=== PATIENT | female | born 1995 | race Caucasian/White ===

== ENCOUNTER 2023-11-22 08:47 | Outpatient (AMB) | payer OTHER, SELFPAY ==
--- NOTE | 2023-11-22 09:23 | MHC.OFFWIV ---
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 She states that she had persistent asthma as a child, for which she utilized albuterol and nebulizer at home. For many years, asthma has been well controlled, and she has not needed any medication for this. About 3 weeks ago however, she developed an upper respiratory infection, and although most of the symptoms have resolved aside from some postnasal drip, she has had persistent coughing and shortness of breath / wheezing. She denies any fever or chills. She does not have any asthma medication at home to utilize. She does not have a PCP, however has a new patient visit scheduled for May at [place]. [facility] Social History Patient Tobacco Use Status: Never used Tobacco Review of Systems Const All systems reviewed & are unremarkable except as noted in HPI and below Physical Exam Vital Signs: Last Vital Signs Temp 99.2 F 11/22/23 09:27 Pulse 107 H 11/22/23 09:27 BP 146/80 H 11/22/23 09:27 Pulse Ox 98 11/22/23 09:27 Oxygen Delivery Method Room Air 11/22/23 09:27 BMI result Body Mass Index 52.5 Const General: cooperative and no acute distress Nutritional Appearance: obese morbidly obese HEENT Other: Hirsutism Head: Yes normal to inspection Ears: hearing grossly normal bilaterally General nose exam: Normal external nose present and Normal nasal mucous membranes and turbinates present Throat: Yes posterior oropharynx normal Resp Effort & Inspection: normal respiratory effort, able to speak in complete sentences and Actively coughing Quality: dry Auscultation: clear to auscultation bilaterally and wheezes upper bilaterally Cardio Jugular venous distension: no JVD Palpation: normal PMI Rate: regular rate Rhythm: regular rhythm Skin General skin exam: no rashes or lesions noted Extrem General: Yes capillary refill normal and Yes no clubbing, cyanosis or edema Psych Appearance: grossly normal Mental Status: mental status grossly normal Speech and movement: Normal speech and movement present Office Procedures Nebulizer Treatment Nebulizer Treatment [id number] RX initial, or Nebulizer Subsequent Treatment Office Meds ipratropium 0.5 mg-albuterol 3 mg (2.5 mg base)/3 mL nebulization soln Performing Provider: SHERI Cook Performing Location: [facility] ([facility] Administered by: Annamarie Blankenship RN on 11/22/23 09:52 Dose Route Admin Location Dispensed Lot Number Expiration Date [employer] 3 mL inhalation 3 mL [id number] 08/14/24 9570-6808-97 [facility] Assessment & Plan Assessment & Plan (1) Asthma exacerbation: Code(s): J45.901 - Unspecified asthma with (acute) exacerbation Qualifiers: Asthma severity: unspecified severity Asthma persistence: unspecified Qualified Code(s): J45.901 - Unspecified asthma with (acute) exacerbation Plan: Nebulizer treatment (duoneb) provided in the office today with good effect. Scattered upper lobe wheezing was resolved upon reassessment following treatment. Patient reports significant improvement. At this time, patient does not have any rescue inhaler for use at home. Will prescribe albuterol for her, and will also start her on a short course of p.o. prednisone for this exacerbation. I encouraged her to contact PCP office to see if she can get in for a new patient visit any sooner than her currently schedule visit which is not for many months. If she does not improve with treatment, or if symptoms worsen, she can return to the clinic or go to the emergency department for further evaluation. She verbalizes understanding and agrees to plan. Orders: Orders AMB Nebulizer Treatment Today J45.901 - Unspecified asthma with (acute) exacerbation Medications: New albuterol sulfate 90 mcg/actuation 1 inh inhalation QID PRN 6.7 grams 1RF shortness of breath or wheezing J45.901 - Unspecified asthma with (acute) exacerbation prednisone 20 mg PO BID 3 days 6 tabs 0RF J45.901 - Unspecified asthma with (acute) exacerbation Coding Level of Care Code Est Pt Level 3 (54523) Diagnoses Exacerbation of asthma, unspecified asthma severity, unspecified whether persistent J45.901 Asthma severity: unspecified severity Asthma persistence: unspecified CPT Codes Nebulizer Treatment - Nebulizer Treatment, initial or subsequent: [id number] RX initial, or Nebulizer Subsequent Treatment ([id number])
[2023-11-22 09:27] VITALS: BP 146/80; PULSE 107; TEMP 37.3; O2SAT 98; BMI 52.5
== END 2023-11-22 10:09 | disposition home or self-care (01) ==
PROVIDERS: PCP Pediatrics; Visit Provider Nurse Practitioner Family
DX: J45.901 Unspecified asthma with (acute) exacerbation (principal)
CPT/HCPCS: 94640; 99213; J7620

== ENCOUNTER 2023-11-27 13:10 | Emergency (ER) | payer OTHER, SELFPAY ==
--- NOTE | ~2023-11-27 | CT_ITS ---
EXAMINATION: CT HEAD WITHOUT CONTRAST CLINICAL INFORMATION: Left arm numbness. COMPARISON: None. TECHNIQUE: Contiguous axial imaging was performed from the skull base to vertex without intravenous administration of contrast. This CT examination was performed using dose optimization techniques as appropriate, variously including the following: *Automated exposure control *Adjustment of mA and/or kV according to patient size (this includes techniques or standardized protocols for targeted exams where dose is matched to indication/reason for exam; i.e. extremities or head) *Use of iterative reconstruction technique DLP: 612 mGy-cm. FINDINGS: There is no intracranial hemorrhage, large infarction, or mass lesion. There is no extra-axial collection. The ventricles are normal in size and configuration without evidence of hydrocephalus. The visualized paranasal sinuses and mastoid air cells are clear. CT/CT head/brain wo IV con IMPRESSION: No acute intracranial abnormality.
[2023-11-27 13:38] VITALS: BP 164/82; BP 179/92; PULSE 86; PULSE 87; RESP 18; TEMP 36.9; O2SAT 100; BMI 51.2
--- NOTE | 2023-11-27 13:38 | ED_ITS ---
HPI - General Adult General Chief complaint: Extremity Problem Stated complaint: L ARM NUMB/TINGLING RAD TO BACK PER EMS Time Seen by Provider: 11/27/23 21:28 Source: patient Mode of arrival: EMS Limitations: no limitations History of Present Illness HPI narrative: patient otherwise healthy came by ambulance for left arm numbness and tingling sudden hour prior to arrival improved on arrival had some pain on the wrist and left shoulder blade which is gone by now no focal deficit noticed in the ER patient had a full workup done at the triage including CT scan of the head which was negative Related Data Previous Rx's Medication Instructions Recorded albuterol sulfate 90 mcg/actuation 1 inh inhalation QID PRN shortness 11/22/23 aerosol inhaler of breath or wheezing #6.7 grams prednisone 20 mg tablet 20 mg PO BID 3 days #6 tabs 11/22/23 Allergies Allergy/AdvReac Type Severity Reaction Status Date / Time No Known Allergies Allergy Unverified 11/27/23 13:38 Review of Systems 2 Review of Systems: Yes all other systems are reviewed and are negative [facility] Social History Social History Patient Tobacco Use Status: Never used Tobacco Smoked in Last 30 Days: No Use of substances other than those prescribed or required for medical reasons: No Advance Directives: No Advance Directives Information Provided: No Patient : No Physical Exam ED Vital Signs: Vital Signs - 24 hr 11/27/23 13:38 11/27/23 20:40 11/27/23 20:40 Temperature 98.5 F 99.0 F 99.0 F Pulse Rate 86 85 85 Respiratory Rate 18 16 16 Blood Pressure 179/92 H 168/97 H 168/97 H Pulse Oximetry 100 97 97 Oxygen Delivery Method Room Air Room Air Room Air BMI result Body Mass Index 51.2 Appearance: Alert. Oriented X3. No acute distress. Eyes: PERRLA, ENT: Pharynx normal. Oral Mucosa moist Neck: Normal inspection. Neck supple. No midline tenderness CVS: Normal heart rate and rhythm. Pulses normal. Respiratory: No respiratory distress. Equal air entry bilateral, Abdomen: Soft and nontender. Skin: Skin warm and dry. Normal skin color. Normal skin turgor. Extremities: No lower extremity edema. No calf tenderness Neuro: Oriented X 3. No motor deficit. No sensory deficit.No cerebellar signs , cranial nerves II-XII intact Course Course Course Narrative: This is an RME: Additional HPI, ROS, PE not included below will be deferred to primary provider. This is a 28 year old female, with a hx of asthma and vasovagal syncope, presenting to the emergency department with complaints of left arm numbness x1 hour. Patient has no neurologic deficits on exam, no headaches, or chest pain. Patient states that she has a history of anxiety. She recently was on prednisone for her asthma, stopped 3 days ago. No recent travel, surgeries, hospitalizations, history of blood clots. She has not on hormones. Patient has a NIH 0, no neuro deficits, no facial droop. Plan: CT head, EKG, labs Medical Decision Making Medical Decision Making [facility] Narrative: Patient nonspecific tingling /numbness of the left arm after arrival no findings in the ER CT scan of the head was negative clinically patient had a pinched nerve Differential Diagnosis Differential Diagnoses: The differential diagnosis associated with the presentation includes Paresthesia/anxiety/pinch nerve, unlikely CVA or TIA Lab Data [facility] Lab Attestation statement: I reviewed the patient's lab results. 11/27/23 14:22 11/27/23 14:22 Labs: Lab Results 11/27/23 Range/Units 14:22 WBC 11.0 H (4.8-10.8) X10*3/uL RBC 5.63 H (4.20-5.50) X10*6/uL Hgb 11.0 L (12.0-16.0) g/dl Hct 38.4 (37.0-47.0) % MCV 68.2 L (80.0-98.0) fL MCH 19.5 L (27.0-33.0) pg MCHC 28.6 L (31.0-35.0) g/dl RDW 19.9 H (11.0-16.0) % Plt Count 278 (160-400) X10*3/uL MPV Not Reportable Immature Gran % (Auto) 0.5 H (0.0-0.4) % Neut % (Auto) 69.3 (45-73) % Lymph % (Auto) 20.1 (20-40) % [place] % (Auto) 7.2 (2-11) % Eos % (Auto) 2.4 (0-4) % Baso % (Auto) 0.5 (0-2) % Lymph # (Auto) 2.2 (1.2-4.9) X10*3/uL [place] # (Auto) 0.8 (0.1-1.2) X10*3/uL Eos # (Auto) 0.3 (0.0-0.4) X10*3/uL Baso # (Auto) 0.1 (0.0-0.2) X10*3/uL Abs Immat Gran (auto) 0.05 H (0.00-0.03) X10*3/uL Absolute Neuts (auto) 7.6 (2.0-8.3) x10*3/uL Absolute Nucleated RBC 0.000 (0.0-0.012) X10*3/uL Nucleated RBC % (auto) 0.0 (0.0-0.2) /100WBC Smear Tech's Comments VERIFIED Sodium 140 (135-145) mmol/L Potassium 4.4 (3.3-5.1) mmol/L Chloride 106 (96-108) mmol/L Carbon Dioxide 27 (22-29) mmol/L Anion Gap 11 L (12-20) BUN 10 (9-16) mg/dL Creatinine 0.75 (0.5-1.4) mg/dL Estim Creat Clear Calc 141.3 Estimated GFR > 60 Random Glucose 123 H (60-115) mg/dL Calcium 9.7 (8.4-10.2) mg/dL Magnesium 2.1 (1.6-2.6) mg/dL Total Bilirubin 0.3 (0.0-1.0) mg/dL Direct Bilirubin 0.1 (0.0-0.5) mg/dL AST 27 (5-31) U/L ALT 45 H (0-31) U/L Alkaline Phosphatase 87 (39-117) U/L Troponin I High Sens < 2.7 (<3.5-17.0) ng/L Total Protein 7.7 (6.5-8.0) g/dL Albumin 4.5 (3.5-5.0) g/dL Beta HCG, Quant < 2 mIU/mL Independent Interpretation I performed an independent interpretation of an: CT Scan Radiology Impression Discussion of test interpretation with radiology: I have reviewed the radiologist's reading. Discharge Plan Discharge Clinical Impression: Paresthesia of left arm Patient Disposition: Home, Self-Care Instructions: Paresthesia (ED) Additional Instructions: Likely had a pinched nerve Nerve CT scan of the head is negative for any stroke Prescriptions: No Action albuterol sulfate 90 mcg/actuation HFA aerosol inhaler 1 inh inhalation QID PRN (Reason: shortness of breath or wheezing) Qty: 6.7 1RF prednisone 20 mg tablet 20 mg PO BID 3 Days Qty: 6 0RF
--- NOTE | 2023-11-27 13:48 | ECG_ITS ---
Test Reason : L ARM NUMBNESS Blood Pressure : / mmHG Vent. Rate : 080 BPM Atrial Rate : 080 BPM P-R Int : 154 ms QRS Dur : 100 ms QT Int : 364 ms P-R-T Axes : 036 005 022 degrees QTc Int : 419 ms Normal sinus rhythm Minimal voltage criteria for LVH, may be normal variant ( R in aVL ) Possible Inferior infarct , age undetermined Abnormal ECG When compared with ECG of 26-NOV-2015 10:23, No significant change was found Referred By: Linnea Trevino Electronically Signed By:GALI MACIEL
[2023-11-27 14:29] LABS: Basophils Absolute Auto 0.1 X10*3/uL (0.0-0.2); Basophils Percent Auto 0.5 % (0-2); Eosinophils Absolute Auto 0.3 X10*3/uL (0.0-0.4); Eosinophils Percent Auto 2.4 % (0-4); Hematocrit 38.4 % (37.0-47.0); Imm Gran Abs Auto 0.05 X10*3/uL (0.00-0.03); Imm Gran Pct Auto 0.5 % (0.0-0.4); Lymphocytes Absolute Auto 2.2 X10*3/uL (1.2-4.9); Lymphocytes Percent Auto 20.1 % (20-40); MANUAL DIFF FLAG SCAN; Mean Corpuscular HGB Conc 28.6 g/dl (31.0-35.0); Mean Corpuscular Hemoglobin 19.5 pg (27.0-33.0); Mean Corpuscular Volume 68.2 fL (80.0-98.0); Monocytes Absolute Auto 0.8 X10*3/uL (0.1-1.2); Monocytes Percent Auto 7.2 % (2-11); Neutrophils Absolute Auto 7.6 x10*3/uL (2.0-8.3); Neutrophils Percent Auto 69.3 % (45-73); PLT CLUMP 1; Red Blood Count 5.63 X10*6/uL (4.20-5.50); Red Cell Distribution Width 19.9 % (11.0-16.0); SCAN SMEAR FLAG 1
[2023-11-27 14:45] LABS: Alanine Aminotransferase 45 U/L (0-31); Albumin Level 4.5 g/dL (3.5-5.0); Alkaline Phosphatase 87 U/L (39-117); Anion Gap 11 (12-20); Aspartate Amino Transferase 27 U/L (5-31); Bilirubin Direct 0.1 mg/dL (0.0-0.5); Bilirubin Total 0.3 mg/dL (0.0-1.0); Blood Urea Nitrogen 10 mg/dL (9-16); Calcium 9.7 mg/dL (8.4-10.2); Carbon Dioxide 27 mmol/L (22-29); Chloride 106 mmol/L (96-108); Creatinine Clr Calc Pharmacy 141.3; Estimated Glomerular Filt Rate > 60; Glucose Random 123 mg/dL (60-115); Magnesium 2.1 mg/dL (1.6-2.6); Potassium 4.4 mmol/L (3.3-5.1); Sodium 140 mmol/L (135-145); Total Protein 7.7 g/dL (6.5-8.0)
[2023-11-27 14:51] LABS: Platelet Count 278 X10*3/uL (160-400)
[2023-11-27 14:52] LABS: SLIDE REVIEW VERIFIED
[2023-11-27 14:59] LABS: HCG Quantitative < 2 mIU/mL; Troponin-I High Sensitivity < 2.7 ng/L (<3.5-17.0)
[2023-11-27 20:40] VITALS: BP 168/97; PULSE 85; RESP 16; TEMP 37.2; O2SAT 97
--- NOTE | 2023-11-27 20:45 | PC.NURSE ---
pt endorses decreased pain and numbness in left arm. She states the tingling is only on her palm at this time. Of note, patient was noted to have IV in RAC while in waiting room. this RN removed IV and charge nurse made aware
[2023-11-27 22:10] VITALS: BP 144/76; PULSE 75; RESP 16; TEMP 36.6; O2SAT 100
== END 2023-11-27 22:13 | disposition home or self-care (01) ==
PROVIDERS: Physician Assistant Medical; Emergency Provider Internal Medicine
DX: R20.2 Paresthesia of skin (principal); M25.532 Pain in left wrist; M25.512 Pain in left shoulder; R94.31 Abnormal electrocardiogram [ECG] [EKG]; Z79.899 Other long term (current) drug therapy
CPT/HCPCS: 36415; 70450; 80048; 80076; 83735; 84484; 84702; 85025; 93005; 99284

== ENCOUNTER → 2023-11-27 13:48 | Outpatient (BNV) | payer OTHER, SELFPAY | PROVIDERS: Emergency Provider Internal Medicine; Visit Provider Internal Medicine | DX: R94.31 Abnormal electrocardiogram [ECG] [EKG] (principal) | CPT/HCPCS: 93010 ==

== ENCOUNTER 2023-12-12 09:23 | Outpatient (AMB) | payer OTHER, SELFPAY ==
[2023-12-12 10:30] VITALS: BP 170/90; PULSE 113; TEMP 36.4; O2SAT 98; BMI 52.3
--- NOTE | 2023-12-12 10:30 | AM.OFFWIN_ITS ---
Intake Vital Signs 12/12/23 10:30 Height 5 ft 2 in Weight 286 lb BMI 52.3 BP 170/90 H Blood Pressure Location Lt brachial Position Sitting Pulse 113 H Pulse Source Pulse Oximeter Temp 97.5 F Temp Source Temporal Artery Scan Pulse Oximetry (%) 98 Oxygen Delivery Method Room Air Intake Visit Reasons: EST/asthma flair up( [phone]) Intake Note: pt is here today for asthma lair up started 11/22 Patient Tobacco Use Status: Never used Tobacco Allergies No Known Allergies Allergy (Verified 12/12/23 10:31) Do you need a note to return to daycare/school/sports/work: Yes HPI HPI Comments History of Present Illness Details Patient presents the walk-in today with complaints of asthma exacerbation Reports worsening wheezing and shortness of breath for last 2 weeks Using albuterol MDI home with minimal relief States she was seen here last month for same, given prednisone for 3 days and states in symptoms improved for a short time Denies chest pain, palpitations, weakness, dizziness, syncope, productive cough, fever Does report that many years ago she used nebulizer and Advair but does not currently have a primary care doctor She states she is using her albuterol MDI multiple times daily with short lasting improvement of her symptoms Her sister did recently get two cats, she is unsure if this is contributing to her symptoms [facility] Social History Patient Tobacco Use Status: Never used Tobacco Review of Systems Const All systems reviewed & are unremarkable except as noted in HPI and below Physical Exam Vital Signs: Last Vital Signs Temp 97.5 F 12/12/23 10:30 Pulse 113 H 12/12/23 10:30 BP 170/90 H 12/12/23 10:30 Pulse Ox 98 12/12/23 10:30 Oxygen Delivery Method Room Air 12/12/23 10:30 BMI result Body Mass Index 52.3 General: awake, alert, oriented. Answers questions appropriately. Fully engaged in examination. Skin: warm, dry, intact HEENT: Normocephalic. Hearing intact. TMs intact bilaterally. posterior pharynx without erythema or exudate Cardiac: External chest normal in appearance. Respiratory: Expiratory wheezing, sinus congestion. Abdomen: without gross distension. MS: No obvious swelling or deformities. Neurological: Oriented to person, place, time and situation. Thought process intact. No gait abnormalities appreciated. Psychiatric: Appropriate mood and affect. Good judgment and insight. Assessment & Plan Assessment & Plan (1) Asthma: Code(s): J45.909 - Unspecified asthma, uncomplicated Plan Patient presented to the walk-in today for asthma exacerbation Chest x-ray ordered independently reviewed, no effusion or infiltrate Prednisone 40 mg p.o. daily x5 days Albuterol MDI 4 times daily as needed Zyrtec 10 mg once daily Symbicort 1 inhalation twice daily All questions were answered, patient agrees with the plan Follow-up with primary care doctor or return here for any new or worsening sympt oms. Orders: Orders XR chest 2V Today R05.9 - Cough, unspecified Medications: New prednisone 40 mg (2 x 20 mg) PO DAILY 5 days 10 tabs 0RF albuterol sulfate 90 mcg/actuation 1 inh inhalation QID PRN 6.7 grams 0RF shortness of breath or wheezing budesonide-formoterol 80-4.5 mcg/actuation 1 inh inhalation BID 30 days 10.2 grams 0RF cetirizine (Zyrtec) 10 mg PO DAILY 20 tabs 0RF Coding Level of Care Code Est Pt Level 4 (50061) Diagnoses Asthma J45.909
== END 2023-12-12 13:37 | disposition home or self-care (01) ==
PROVIDERS: Visit Provider Registered Nurse Emergency
DX: J45.909 Unspecified asthma, uncomplicated (principal)
CPT/HCPCS: 99213

== ENCOUNTER 2023-12-12 11:01 | Outpatient (REF) | payer OTHER, SELFPAY ==
--- NOTE | ~2023-12-12 | XR_ITS ---
EXAMINATION: XR CHEST CLINICAL INFORMATION: Cough. COMPARISON: None available. TECHNIQUE: 2 views of the chest were obtained. FINDINGS: No significant abnormality is noted involving the heart, lungs, mediastinum, bony thorax or soft tissues. XR/XR chest 2V IMPRESSION: Unremarkable chest examination.
== END 2023-12-12 11:02 | disposition home or self-care (01) ==
LOC: HO.HMGCX 11:01
PROVIDERS: Visit Provider Registered Nurse Emergency
DX: R05.9 Cough, unspecified (principal)
CPT/HCPCS: 71046

== ENCOUNTER 2024-02-21 14:34 | Outpatient (AMB) | payer OTHER, SELFPAY ==
[2024-02-21 14:52] VITALS: BP 150/78; PULSE 74; TEMP 36.4; O2SAT 97
--- NOTE | 2024-02-21 14:52 | AM.OFFWIN_ITS ---
Intake Vital Signs 02/21/24 14:52 Height 5 ft 2 in BP 150/78 H Blood Pressure Location Lt brachial Position Sitting Pulse 74 Pulse Source Pulse Oximeter Temp 97.6 F Temp Source Oral Pulse Oximetry (%) 97 Oxygen Delivery Method Room Air Intake Visit Reasons: EP asthma attacks (lobby) Intake Note: pt is here for c/o asthma and requesting a new inhaler Patient Tobacco Use Status: Never used Tobacco Allergies No Known Allergies Allergy (Verified 02/21/24 14:54) Do you need a note to return to daycare/school/sports/work: Yes HPI EP asthma attacks (lobby) HPI Details 28-year-old female presents [facility] sick visit. Patient is requesting a refill on albuterol. She was seen in November for exacerbation of asthma. She is yet to make an appointment with her primary care provider. The appointment is scheduled for April. [facility] Social History Patient Tobacco Use Status: Never used Tobacco Physical Exam Vital Signs: Last Vital Signs Temp 97.6 F 02/21/24 14:52 Pulse 74 02/21/24 14:52 BP 150/78 H 02/21/24 14:52 Pulse Ox 97 02/21/24 14:52 Oxygen Delivery Method Room Air 02/21/24 14:52 Const General: cooperative and healthy appearing Nutritional Appearance: well nourished Orientation/consciousness: patient oriented x3 Limitations: no limitations HEENT Head: Yes normal to inspection Eyes General: appearance normal, both eyes and all related structures Neck Neck: Yes normal visual inspection Chest Chest palpation & inspection: normal palpation of entire chest wall Resp Effort & Inspection: normal respiratory effort Neuro General: patient oriented x3 Assessment & Plan Assessment & Plan (1) Asthma: Code(s): J45.909 - Unspecified asthma, uncomplicated Plan: Maintenance and rescue inhalers filled. If symptoms do not improve to follow-up here. Medications: New budesonide-formoterol 160-4.5 mcg/actuation (Symbicort) 2 puffs PO BID 10.2 grams 1RF Refilled albuterol sulfate 90 mcg/actuation 1 inh inhalation QID PRN 6.7 grams 0RF shortness of breath or wheezing Coding Level of Care Code Est Pt Level 3 (51555) Diagnoses Asthma J45.905
== END 2024-02-21 15:50 | disposition home or self-care (01) ==
PROVIDERS: PCP Internal Medicine; Visit Provider Internal Medicine
DX: J45.909 Unspecified asthma, uncomplicated (principal)
CPT/HCPCS: 99213

== ENCOUNTER 2024-07-09 10:02 | Outpatient (AMB) | payer OTHER, SELFPAY ==
[2024-07-09 10:17] VITALS: BP 144/82; PULSE 107; TEMP 37.1; O2SAT 98; BMI 53.4
--- NOTE | 2024-07-09 10:17 | MHC.OFFWIV ---
Intake Vital Signs 07/09/24 10:17 Height 5 ft 2 in Weight 292 lb BMI 53.4 BP 144/82 H Blood Pressure Location Lt brachial Position Sitting Pulse 107 H Pulse Source Pulse Oximeter Temp 98.7 F Temp Source Oral Pulse Oximetry (%) 98 Oxygen Delivery Method Room Air Intake Visit Reasons: EP- SOB, asthma flare up Intake Note: Pt is here today c/o SOB and asthma flare up Patient Tobacco Use Status: Never used Tobacco Allergies No Known Allergies Allergy (Verified 07/09/24 10:19) Do you need a note to return to daycare/school/sports/work: Yes HPI EP- SOB, asthma flare up HPI Details This note is constructed using voice recognition software. While every effort has been made to ensure accuracy, liability claims adjuster errors may have been included. The patient is a 28 year old female who presents to the clinic today with dyspnea in setting of asthma. She notes that she is in between pcp due to them no longer accepting her insurance, and as a result, she has run out of her symbicort about 1 month ago. After 2 weeks, she started getting dyspneic with activity. She has required to use her albuterol inhaler daily for symptoms since. She denies fever, chills, cough, dyspnea at rest. [facility] Social History Patient Tobacco Use Status: Never used Tobacco Review of Systems Const All systems reviewed & are unremarkable except as noted in HPI and below Physical Exam Vital Signs: Last Vital Signs Temp 98.7 F 07/09/24 10:17 Pulse 107 H 07/09/24 10:17 BP 144/82 H 07/09/24 10:17 Pulse Ox 98 07/09/24 10:17 Oxygen Delivery Method Room Air 07/09/24 10:17 BMI result Body Mass Index 53.4 Const General: cooperative, healthy appearing, comfortable, no acute distress and alert Orientation/consciousness: patient oriented x3 Limitations: no limitations HEENT Head: Yes normal to inspection and Yes normocephalic Ears: hearing grossly normal bilaterally General nose exam: Normal external nose present Face and sinus: Yes normal facial exam and Yes sinuses nontender Mouth: Normal oral and palatal mucosa present and tongue normal Teeth and gingiva: dentition normal Throat: Yes posterior oropharynx normal Eyes General: appearance normal, both eyes and all related structures Neck Neck: Yes normal visual inspection, Yes full ROM and Yes no lymphadenopathy Resp Other: Speaking in complete sentences without distress. Effort & Inspection: normal respiratory effort and able to speak in complete sentences Auscultation: clear to auscultation bilaterally Cardio Jugular venous distension: no JVD Palpation: normal PMI Rate: regular rate Heart sounds: S1 normal heart sound present, S2 normal heart sound present, no click, no gallops, no murmurs and no rubs Skin General skin exam: no rashes or lesions noted, elasticity normal and turgor normal Neuro General: patient oriented x3 Psych Appearance: grossly normal Mental Status: mental status grossly normal Speech and movement: Normal speech and movement present Affect: normal affect Assessment & Plan Assessment & Plan (1) Asthma: Code(s): J45.909 - Unspecified asthma, uncomplicated Qualifiers: Asthma severity: mild Asthma persistence: persistent Asthma complication type: unspecified Qualified Code(s): J45.30 - Mild persistent asthma, uncomplicated Plan: Refill symbicort provided today as well as albuterol for symptomatic management. No concern for viral illness at this time, and likely symptoms are related to running out of controller medication. Advised patient to follow up with any worsening including requiring increased use of albuterol once on her controller medication. Patient to inquire for a new pcp for management of chronic conditions and health maintenance. Plan See above for full details and plan. Medications: Refilled budesonide-formoterol 160-4.5 mcg/actuation (Symbicort) 2 puffs PO BID 10.2 grams 1RF albuterol sulfate 90 mcg/actuation 1 inh inhalation QID PRN 6.7 grams 0RF shortness of breath or wheezing Coding Level of Care Code Est Pt Level 3 (31646) Diagnoses Mild persistent asthma, unspecified whether complicated J45.30 Asthma severity: mild Asthma persistence: persistent Asthma complication type: unspecified
== END 2024-07-09 10:51 | disposition home or self-care (01) ==
PROVIDERS: PCP Internal Medicine; Visit Provider Registered Nurse
DX: J45.30 Mild persistent asthma, uncomplicated (principal)
CPT/HCPCS: 99213